=== PATIENT | male | born 1965 | race African-American/Black ===

== ENCOUNTER 2023-09-18 08:48 | Emergency (ER) | payer OTHER ==
[~2023-09-18] VITALS: Ht 177.8 cm; Wt 82.0 kg
[2023-09-18 08:50] VITALS: O2SAT 100
[2023-09-18] MEDS ORDERED: IBUP-2029 MT (10:20)
[2023-09-18 10:50] VITALS: BP 122/80; PULSE 63; RESP 18; TEMP 98.8
== END 2023-09-18 10:50 | disposition home or self-care (01) ==
LOC: ER 08:48
DX: M79.641 Pain in right hand (principal); M54.2 Cervicalgia; M25.511 Pain in right shoulder
CPT/HCPCS: 73130; 99283